=== PATIENT | female | born 1990 | race Caucasian/White ===

== ENCOUNTER 2020-04-09 06:43 | Inpatient (IN) | payer OTHER ==
[2020-04-09] MEDS ORDERED: LORTAB 5-325 M1 EACH PO ×2 (10:18→10:19)
[2020-04-10 06:38] LABS: HEMOGLOBIN 10.9 gm/dl (12.3-15.3)
== END 2020-04-10 16:45 | disposition home or self-care (01) | DRG 787 ==
LOC: OB 06:43
PROVIDERS: Obstetrics & Gynecology; ADMIT Obstetrics & Gynecology
PROC: 10D00Z1 Extraction of Products of Conception, Low, Open Approach (ICD-10-PCS; principal; 2020-04-10)
PROC: 3E0234Z Introduction of Serum, Toxoid and Vaccine into Muscle, Percutaneous Approach (ICD-10-PCS; 2020-04-10)
DX: O34.211 Maternal care for low transverse scar from previous cesarean delivery (principal); O36.0930 Maternal care for other rhesus isoimmunization, third trimester, not applicable or unspecified; Z3A.39 39 weeks gestation of pregnancy; Z37.0 Single live birth; O99.214 Obesity complicating childbirth; Z88.2 Allergy status to sulfonamides; Z91.040 Latex allergy status; O99.52 Diseases of the respiratory system complicating childbirth; J45.909 Unspecified asthma, uncomplicated; Z28.21 Immunization not carried out because of patient refusal; Z83.3 Family history of diabetes mellitus
CPT/HCPCS: 36415; 81001; 82800; 85014; 85018; 85025; 85461; 86850; 86900; 86901; C9113; J0690; J1885; J2210; J2274; J2405; J2590; J2790; J3010; J7120